=== PATIENT | male | born 1980 | race Two or more races ===

== ENCOUNTER 2023-08-21 11:50 | Emergency (ER) | payer OTHER, SELFPAY ==
[2023-08-21 11:55] VITALS: BP 160/98
[2023-08-21 12:11] LABS: % Basophils 0.5 % (0-2); % Eosinophils 0.8 % (0-6); % Immature Granulocytes 0.2 % (0-0.5); % Lymphocytes 31.7 % (20.5-51.1); % Monocytes 6.9 % (1.7-9.3); % Neutrophils 59.9 % (42.2-75.2); Absolute Eosinophils 0.1 10^3/uL (0-0.7); Absolute Monocytes 0.4 10^3/uL (0.1-0.6); Absolute Neutrophils 3.8 10^3/uL (1.4-6.5); Hemoglobin 14.7 g/dL (13.0-18.0); Mean Corpuscular Hgb 31.3 pg (27.0-31.0); Mean Corpuscular Volume 89.4 fL (80.0-94.0); Mean Platelet Volume 9.9 fL (7.4-10.4); Nucleated Red Blood Cells % 0 % (-); Platelet Count 198 10^3/uL (130-400); Red Cell Dist. Width 11.6 % (11.5-14.5); White Blood Cell Count 6.4 10^3/uL (4.8-10.8)
[2023-08-21 12:37] LABS: ALT (SGPT) 22 U/L (0-50); AST (SGOT) 33 U/L (17-59); Alkaline Phosphatase 75 U/L (38-126); Blood Urea Nitrogen 14 mg/dl (9-20); Calcium 9.9 mg/dl (8.4-10.2); Carbon Dioxide 24 mmol/L (22-30); Chloride 98 mmol/L (98-107); Glucose 100 mg/dl (70-99); Potassium 4.2 mmol/L (3.5-5.1); Sodium 134 mmol/L (135-145); Total Bilirubin 1.7 mg/dl (0.2-1.3); Total Protein 7.9 g/dl (6.3-8.2); Troponin I < 0.012 ng/ml; eGFR > 60.00
[2023-08-21 12:48] VITALS: BP 155/80
[2023-08-21 13:00] VITALS: BP 144/90
--- NOTE | 2023-08-21 13:02 | ED.GENMED ---
History of Present Illness
General
Chief Complaint: Chest Pain
Source: patient
Exam Limitations: none
Time Seen by Provider: 08/21/23 12:40
Nursing documentation reviewed up to this point in time: agreed with
Travel History
Have you had any contact with someone who has COVID-19?: No
Do you have any symptoms of coronavirus? Fever > 100 degrees, chills, cough, shortness of breath, sore throat, loss of taste or smell, muscle aches, or headache?: No
History of Present Illness
History of Present Illness:
Patient is a 42 year old male with hx CAD s/p 2 stents in 2021 presenting for evaluation of chest pain. Patient states symptoms initially started yesterday midmorning with and have been intermittent since. He describes it as sharp pain in his left
chest that is not exertional or pleuritic in nature. Symptoms resolved by yesterday evening. They did return this morning and seemed worse. Given persistence of symptoms patient decided to come to the emergency department for evaluation. He did
go to the gym this morning and workout without any worsening in symptoms. Patient denies any associated shortness of breath, nausea, vomiting, diaphoresis, lightheadedness. Patient denies any alleviating or exacerbating factors. Patient denies
any recent travel or recent surgeries.
Patient does note that the symptoms feel 'very similar 'to symptoms he experienced 2 years ago during his NSTEMI which resulted in 2 cardiac stents.
Past History
Past History
ED Past Medical History: None
ED Past Surgical History: None
Social History
Tobacco: Non-smoker
Alcohol: Occasional
Personal:
Living: with family
Employment: Employed
Phy Exam
Physical Exam
Physical Exam:
General: In no apparent distress, nontoxic appearing
Vitals: Vital signs stable, afebrile
HEENT: Atraumatic, normocephalic; pupils equal round and reactive to light bilaterally, protecting airway, uvula midline
Neck: appears supple, no JVD, trachea midline
CV: Regular rate and rhythm, heart sounds normal without any evidence of murmur, no evidence of cyanosis, good distal pulses, no evidence of cyanosis; anterior chest wall nontender to palpation
Resp: No evidence of respiratory distress, lungs clear bilateral without any wheezing, rales, rhonchi
Abd: Soft, nontender, non-distended
Extremities: No deformities, no evidence of cyanosis or edema; DP pulses palpable and equal bilaterally
Neuro: alert and oriented; grossly intact
Psych: Normal affect
Skin: Intact, no rashes
Scores
Heart Score for Chest Pain Patients
STEMI patient?: No
History: Slightly or Non-Suspicious
ECG: Normal
Age: </= 45 years
Risk Factors: 1 or 2 Risk Factors
Troponin: </= Normal Limit
Heart Score for Chest Pain Patients: 1
Heart Score Risk: 2.5% MACE over next 6 weeks
Course
Orders/Labs/Results
Orders:
Orders
08/21/23 11:52
EKG [Electrocardiogram (*1)] Urgent
Reason for Study: Chest Pain
EKG- Treatment ONCE
08/21/23 12:03
Complete Blood Count/With Diff Urgent
Comprehensive Metabolic Panel Urgent
Troponin I Urgent
08/21/23 13:11
EKG- Treatment ONCE
CR Chest - 2 Views Urgent
Comment:
Reason For Exam: left sided chest pain
08/21/23 13:31
EKG- Treatment ONCE
08/21/23 14:30
Electrocardiogram (*1) Urgent
Reason for Study: Chest Pain
08/21/23 14:44
Troponin I Urgent
Abnormal Lab Results
08/21/23
12:03
MCH 31.3 H pg
(27.0-31.0)
Sodium 134 L mmol/L
(135-145)
Glucose 100 H mg/dl
(70-99)
Total Bilirubin 1.7 H mg/dl
(0.2-1.3)
08/21/23 12:03
08/21/23 12:03
Vital Signs
Initial and Last Documented VS:
Initial Vital Signs
Temp Pulse Resp BP Pulse Ox
99.4 F 82 18 160/98 100
08/21/23 11:55 08/21/23 11:55 08/21/23 11:55 08/21/23 11:55 08/21/23 11:55
Last Documented Vital Signs
Temp Pulse Resp BP Pulse Ox
99.4 F 66 19 121/85 100
08/21/23 11:55 08/21/23 16:30 08/21/23 16:30 08/21/23 16:00 08/21/23 11:55
MDM/Problems Addressed
Differential Diagnosis Includes:
Not limited to: Muscle strain, GERD, costochondritis, pericarditis, myocarditis, stable angina, pneumothorax, ACS
MDM/Problems Addressed:
Patient is a 42-year-old male with history of CAD w/ 2 stents presenting for evaluation of somewhat atypical left-sided chest pain intermittently over the past 2 days. No associated shortness of breath, exertional component, or pleuritic component.
Patient asymptomatic at this time. Patient has stable vital signs. Exam as above. Heart rate regular, normal rhythm. Lungs clear bilaterally. Chest wall nontender palpation. Initial labs obtained in triage are without any clinically
significant abnormalities. Initial troponin was negative. EKG shows normal sinus rhythm without any signs of ischemia.
Low suspicion for acute coronary syndrome given history and exam, although suspicion raised once patient states that symptoms were extremely similar to prior NSTEMI resulting in 2 stents in 2021. Will repeat troponin in 3 hours. Will check chest
x-ray. Discussed with cardiology who will consult. Not clinically suspicious of PE
Patient has remained asymptomatic throughout his entire duration in the emergency department. Second troponin is negative. Chest x-ray showed no signs of acute disease. Discussed with cardiology who feel patient is stable for discharge with close
cardiology follow-up. They have scheduled patient for nuclear stress test next week.
Discussed with patient. Stable for discharge with close return precautions, cardiology follow-up. Patient comfortable with this plan. All questions answered.
Chronic conditions affecting care:
CAD with 2 stents
Acute Exacerbation and/or Progression of Chronic Illness:
N/A
*Radiology
Radiology exam reviewed: preliminary read by ED provider and radiology read reviewed
*Pulse Oximetry
Patient hypoxic: no
*EKG
Interpreted by ED Provider?: Yes
EKG Intrepretation Date: 08/21/23
Interpretation: normal
Comparison EKG: no comparison EKG present
Heart Rate: 55
Rate: bradycardiac
Rhythm: sinus
Ischemia: no ischemia
*Snow Groomer Interpretation
Rate: normal
Interpretation: normal
Heart Rate: 64
Rhythm: sinus
*Critical Care Note
Total Time (30-74mins, 75-104mins- exclusive of procedures): Not Applicable
Data Reviewed
Review of Other/Old Records Reveals: Labs, Records, Operative Reports and Progress Notes
Source: patient, family, physician, previous radiology exam and previous hospital records
Patient Management
Discussion with other providers: Tower Excavator Operator (Cardiology)
Escalation/DeEscalation of care consider admission/obs:
Discussed admission for further monitoring with cardiology but after evaluation cardiology feels stable for discharge with outpatient stress test scheduled next week
ED Attending Note
-
Portions of this chart may have been created with voice recognition software.� Occasional wrong word or��sound alike� substitutions may have occurred due to the inherent limitations of voice recognition software.
Discharge Plan
Departure
Patient Disposition: Home (Routine Discharge)
Date of Disposition: 08/21/23
Time of Disposition: 16:37
Patient with high blood pressure during this ER visit?: No
Condition: Good
Covid-19: Not Applicable
Discharge Problem:
Chest pain
Instructions: Chest Pain (DC)
Prescriptions:
No Action
cyanocobalamin (vitamin B-12) 1,000 MCG tablet
1,000 mcg PO DAILY
cholecalciferol (vitamin D3) 1,000 UNITS tablet
1,000 units PO DAILY
Zinc
1 tab PO DAILY
atorvastatin 40 MG tablet
40 mg PO QPM Qty: 30 11RF
aspirin 81 MG tablet,chewable
81 mg PO DAILY Qty: 30 11RF
metoprolol succinate 12.5 MG tablet extended release 24 hr
12.5 mg PO DAILY Qty: 30 5RF
lisinopril 2.5 MG tablet
2.5 mg PO HS Qty: 30 5RF
clopidogrel 75 MG tablet
75 mg PO DAILY Qty: 30 11RF
Referrals:
Jian Urrutia DO [Family Provider] -
Harvey Tim MD [Active] - Keep scheduled appt
Activity Restrictions/Additional Instructions:
- Return to the emergency department any severe chest pain, shortness of breath, severe back pain, chest pain associated with diaphoresis, shortness of breath, nausea; worsening in current symptoms, or any other concerns
-As discussed�you should follow-up with cardiology next week as scheduled for stress test. An appointment has been made for for at 7 AM.
-It is important to stay well-hydrated. You should take it easy and limit strenuous activity until cleared by
Interventions
Interventions:
*Risk Screen - Suicide Last Done: 08/21/23 15:15
*General Assessment Last Done: 08/21/23 15:15
*Neglect/Abuse Screening Last Done: 08/21/23 15:15
ED- Fall Risk Assessment Last Done: 08/21/23 15:15
*ED COVID-19 Vaccine History Last Done: 08/21/23 11:55
*Nursing Disposition Last Done: 08/21/23 16:47
ED- Cardiac Assessment Last Done: 08/21/23 14:57
Discharge Date and Time
Discharge Date/Time: 08/21/23 16:48
Print Language: KOREAN
[2023-08-21 14:39] VITALS: BMI 24.3
[2023-08-21 14:47] VITALS: BP 120/78
[2023-08-21 15:00] VITALS: BP 121/83
--- NOTE | 2023-08-21 15:11 | CON.CAR ---
Addendum entered and electronically signed by Jason Chen DO 08/21/23 17:41:
I saw and examined the patient.
The Tow Operator's note was reviewed and I agree with the note.
Comment:
Plan:
Atypical chest symptoms with negative work up in ER including neg trop X 2.
EKG without acute changes
Hemodynamically stable
Given hx of residual mid LAD disease discussed checking outpt exercise MIBI and pt is agreeable.
Pt was asked not to exercise until stress test completed.
Discussed with family at bedside.
Discussed with ER
Original Note:
Consultation
Consultation Request
Date/Time Consultation Performed: 08/21/23
Requesting Provider: Fabiana Willis PA-C
Performing Provider: Angélica Blakely PA-C for Dr. Chen
Reason for Consultation: CP
Medical History
-
Chief Complaint: CP
History of Present Illness:
Patient is a 42-year-old male with past medical history of anterior wall NSTEMI resulting in proximal LAD PCI and staged circumflex PCI 06/2021. He has residual 50 to 60% mid LAD stenosis which was treated medically. He has been compliant with his
aspirin, Plavix, Lipitor, metoprolol, and Cozaar. 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 He states this happened 5-6 times yesterday
morning and again 4-5 times yesterday afternoon, each time lasting approximately 30-40 seconds. He states it also recurred several times this morning and was more severe. He states this is similar to the pain he felt in setting of his [place]. He
denies radiation of the pain, nausea or vomiting, diaphoresis, lightheadedness. He reports he has been compliant with his medications. He states that he has been completing an hour of exercise every morning without any discomfort or shortness of
breath. His reports on Saturday he was out in the garden using the cultivator. He has been pain free since arrival to ER.
PMH:
History of anterior wall NSTEMI status post multivessel stenting of LAD and circumflex 06/2021 with residual 50% mid LAD stenosis, medically managed
Hyperlipidemia
Prediabetes
Borderline hypercholesterolemia
Gilbert's disease
Family history of coronary artery disease
Past Medical History
Past Medical History: Other (in HPI)
Social History
Tobacco: Non-Smoker
Alcohol: None
Personal:
Living: With Family
Employment: Employed
Family History
Family History: CAD (in father)
Allergies / Home Medications
Allergy/AdvReac Type Severity Reaction Status Date / Time
nitroglycerin Allergy other Verified 08/21/23 11:56
�Medication �Instructions �Recorded �Confirmed �Type
Zinc 1 tab PO DAILY Supplement 06/25/21 06/25/21 History
cholecalciferol (vitamin D3) 25 1,000 units PO DAILY Supplement 06/25/21 06/25/21 History
mcg (1,000 unit) tablet
cyanocobalamin (vitamin B-12) 1,000 mcg PO DAILY Supplement 06/25/21 06/25/21 History
1,000 mcg tablet
aspirin 81 mg chewable tablet 81 mg PO DAILY #30 tabs 06/28/21 Rx
atorvastatin 40 mg tablet 40 mg PO QPM #30 tabs 06/28/21 Rx
clopidogrel 75 mg tablet 75 mg PO DAILY #30 tabs 06/28/21 Rx
lisinopril 2.5 mg tablet 2.5 mg PO HS #30 tabs 06/28/21 Rx
metoprolol succinate 25 mg 12.5 mg (1/2 x 25 mg) PO DAILY ##30 06/28/21 Rx
tablet,extended release 24 hr
Review of Systems
-
History Source: Patient and Family
All other systems: Negative unless noted
Physical Exam
Vital Signs
Temp Pulse Resp BP Pulse Ox
99.4 F 71 13 120/78 100
08/21/23 11:55 08/21/23 14:47 08/21/23 13:30 08/21/23 14:47 08/21/23 11:55
Lab Results
08/21/23 12:03
08/21/23 12:03
Troponin I Cancelled 08/21/23 15:05
Physical Exam
General: No Apparent Distress and Comfortable
HEENT: Normocephalic, Anicteric and Moist Mucous Membranes
Respiratory: Clear and Non Labored Respirations
Cardiac: S1/S2 and Regular Rhythm
GI: Soft, Non Tender, Non Distended and Normal Bowel Sounds
Musculoskeletal: No Clubbing, No Cyanosis and No Edema
Skin: Warm and Dry
Neuro: AO x 3
Impression / Plan
-
Primary Liquid Hydrogen Plant Operator: Dr. Tim
Assessment:
Presentation with CP
CAD with anterior wall NSTEMI status post multivessel stenting of LAD and circumflex 06/2021 with residual 50-60% mid LAD stenosis, medically managed
Hyperlipidemia
Prediabetes
Borderline hypercholesterolemia
Gilbert's disease
Family history of coronary artery disease
ECHO 06/26/2021: EF 50 to 55%, mild septal hypertrophy, distal septal and distal anteroseptal hypokinesis, mid and distal anterior wall akinetic, basal inferolateral wall akinetic
Plan:
-Patient presents with left-sided chest discomfort.
-He has prior NSTEMI resulting in LAD and circumflex PCI 06/2021 with residual 50 to 60% mid LAD stenosis, medically managed
-He states his pain is similar to how he presented in 2021 in the setting of his RI
-Troponins negative x 2
-EKG x 2 sinus rhythm without acute ischemic abnormalities noted
-Chest x-ray without acute abnormalities
-last echo from 2021 with preserved EF
-he is presently pain free and denies pain with daily exercise
-Will plan for exercise nuclear stress test 08/27/2023 to further evaluate, with particular focus to LAD distribution
-continue asa, plavix, lipitor, toprol, losartan. could consider addition of low dose norvasc if BP allows
-to return to ER with worsening symptoms
-d/w patient and at bedside
-d/w ER PA
Data Reviewed
-
EKG: Tracing Personally Visualized and interpreted
Radiology: Report Reviewed by me
Medical Tests (Nuc Med, Echo etc): Report Reviewed by me
Labs: Labs Reviewed by me
Old Records: Reviewed
[2023-08-21 15:20] LABS: Troponin I < 0.012 ng/ml
[2023-08-21 16:00] VITALS: BP 121/85
== END 2023-08-21 16:48 | disposition home or self-care (01) ==
LOC: EMR 11:50
PROVIDERS: Emergency Medicine; Physician Assistant; EMERGENCY PHYSICIAN Emergency Medicine; FAMILY PHYSICIAN Family Medicine; OTHER PHYSICIAN Nuclear Medicine Nuclear Cardiology
DX: R07.89 Other chest pain (principal)
CPT/HCPCS: 99285; 71046; 80053; 84484; 85025; 93005

== ENCOUNTER → 2023-08-27 06:55 | Outpatient (REF) | payer OTHER, SELFPAY | LOC: RCS 06:55 | PROVIDERS: ATTENDING PHYSICIAN Nuclear Medicine Nuclear Cardiology | DX: R07.9 Chest pain, unspecified (principal); I25.10 Atherosclerotic heart disease of native coronary artery without angina pectoris | CPT/HCPCS: 78452; 93017; A9500 ==